=== PATIENT | male | born 1965 | race Caucasian/White ===

== ENCOUNTER 2016-07-14 21:04 | Emergency (ER) | payer OTHER ==
[2016-07-14] MEDS ORDERED: CEPHALEXIN 500 MG CAPSULE ONE (22:04)
[2016-07-14] MEDS ORDERED: SULFAMETHOXAZOLE 800 MG/TRIMETHOPRIM 160 MG TABLET ONE (22:15)
== END 2016-07-14 23:15 | disposition home or self-care (01) ==
LOC: ED 21:04
DX: S71.122A Laceration with foreign body, left thigh, initial encounter (principal); M70.31 Other bursitis of elbow, right elbow; W29.8XXA Contact with other powered hand tools and household machinery, initial encounter; Y93.H3 Activity, building and construction; Y92.9 Unspecified place or not applicable
CPT/HCPCS: 99283 ×2; A9270 ×2